=== PATIENT | female | born 2000 | race African-American/Black ===

== ENCOUNTER 2025-04-07 09:15 | Emergency (ER) | payer OTHER, SELFPAY ==
--- OUTSIDE RECORDS SUMMARY | 2024-06-24 10:15 | XMS_ITS ---
Author Organization [facility] vices Address [address] [place], [place] [phone] Care Team Providers Care Lead Data Architect Name Role Phone Ellie Brennan Primary Care Provider Sushila Robles Unavailable [phone] REASON FOR VISIT 6wk f/u cough Social History Sex Assigned At : Social History Observation Description Sex Assigned At Female Encounters Encounter Location Date Provider Diagnosis Main [address] [place] [phone] 06/24/2024 Sushila Robles Plan Of Treatment No Information Progress Notes * Shiloh ANDREaDOB: 1 (24 yo F)Acc No.[id number]:06/24/2024 Medical Note Patient: Macrina DERAS Provider: VINAY Carlton :2000 A ge:23 Y S ex:Female Date:06/24/2024 Address:[address] [place], [place] [phone] Pcp:Ellie Brennan Subjective: * Chief Complaints: * 1 . 6wk f/u cough. * Medical History: Objective: * Vitals: Assessment: Plan: * Treatment: * Billing Information: * Visit Code: * Procedure Codes: * Electronic signature of VINAY Perry on 04/07/2025 at 09:44 AM EDT Sign off status: Pending * Provider: VINAY Carlton Date: 1 08/25/2023 Generated for Marlene david/Arron/Farrah on: 1 09:44 AM EDT
--- OUTSIDE RECORDS SUMMARY | 2024-08-02 12:00 | XMS_ITS ---
Author Organization [facility] vices Address [address] [place], [place] [phone] Care Team Providers Care Elevator Erector Name Role Phone Ellie Brennan Primary Care Provider Sushila Robles Unavailable REASON FOR VISIT f/u stomach Social History Sex Assigned At : Social History Observation Description Sex Assigned At Female Encounters Encounter Location Date Provider Diagnosis Main [address], [place] [phone] 08/02/2024 Sushila Robles Plan Of Treatment No Information Progress Notes * Shiloh ANDREAzizaB: 1 (24 yo F)Acc No.[id number]:08/02/2024 Patient: Macrina DERAS Provider: VINAY Carlton :2000 A ge:23 Y S ex:Female Date:08/02/2024 Address:[address] [place], [place] [phone] Pcp:Ellie Brennan Subjective: * Chief Complaints: * 1 . F/u stomach. * Medical History: Objective: * Vitals: Assessment: Plan: * Treatment: * Billing Information: * Visit Code: * Procedure Codes: * Electronic signature of VINAY Perry on 04/07/2025 at 09:44 AM EDT Sign off status: Pending * Provider: VINAY Carlton Date: 0 08/02/2024 Generated for Marlene david/Arron/Farrah on: 1 09:44 AM EDT
[2025-04-07 09:21] VITALS: BP 127/79; PULSE 76; TEMP 36.9; O2SAT 99; BMI 25.1
--- NOTE | 2025-04-07 09:36 | ED_ITS ---
HPI - Skin/Abscess/Foreign Bdy General Chief complaint: Skin/Abscess/Foreign Body Stated complaint: EAR PAIN, BUMP UNDER ARM Time Seen by Provider: 04/07/25 09:22 Source: patient Mode of arrival: walk-in Limitations: no limitations History of Present Illness HPI narrative: cc - pain left armpit, skin changes including right external ear Pt noticed a small lump in her left armpit several months ago and over the last 4 weeks has experienced waxing and waning pain in the area. She told me that the area appears to have gotten larger. She wonders what might be the cause of that. She also has experienced crusting and occasional pimple-like growth on the right external ear and popped it and noticed some bleeding. Now it is crusted over. No systemic concerns such as fever or chills. No inner ear pain. No drainage from the left armpit lump. Related Data Previous Rx's ?Medication ?Instructions ?Recorded cephalexin 500 mg capsule 500 mg PO QID 7 days #28 cap s 04/07/25 sulfamethoxazole 800 1 tab PO BID 7 days #14 tabs 04/07/25 mg-trimethoprim 160 mg tablet (Bactrim DS) Allergies Allergy/AdvReac Type Severity Reaction Status Date / Time No Known Drug Allergies Allergy Verified 04/07/25 09:21 PFSH PFSH Social History Little interest or pleasure in doing things: not at all Feeling down, depressed, or hopeless: not at all Exam Narrative Exam Narrative: Nurses notes and vital signs reviewed and patient is not hypoxic. afebrile General: Well-appearing and in no apparent distress. Skin: Warm, dry, no pallor noted. Eye: Pupils are equal, round and EOMI. No scleral icterus. Ears, Nose, Mouth, and Throat: Both EACs have wax but the TMs are clear bilaterally. On the right, at the entrance to the external auditory canal, there is some crusting and scabbing along the skin of the external ear. No pustule or other acute infectious changes are noted. No bleeding or purulent discharge. No swelling or erythema to suggest cellulitis. Cardiovascular: Normal peripheral perfusion. Respiratory: No accessory muscle use or respiratory distress. Lungs are clear to auscultation, no wheezing, rales or rhonchi Musculoskeletal: Left axillary tenderness with a focal 1 cm diameter area of subcutaneous prominence -difficult to ascertain whether this is a swollen lymph node or perhaps an early developing abscess. Left upper extremity with normal ROM. No purulence or drainage from this area. No erythema or other skin change to suggest acute cellulitis. Neurological: A&O x4. No cranial nerve dysfunction observed. No truncal ataxia. Moves all extremities. Sensation intact. Psychiatric: Cooperative and interactive. Normal mood and affect. Constitutional Vital Signs, click to edit/add: Last Vital Signs Temp 98.5 F 04/07/25 09:21 Pulse 76 04/07/25 09:21 Resp 18 04/07/25 09:21 BP 127/79 04/07/25 09:21 Pulse Ox 99 04/07/25 09:21 O2 Del Method Room Air 04/07/25 09:21 Course Vital Signs Vital signs: Vital Signs Temperature 98.5 F 04/07/25 09:21 Pulse Rate 76 04/07/25 09:21 Respiratory Rate 18 04/07/25 09:21 Blood Pressure 127/79 04/07/25 09:21 Pulse Oximetry 99 04/07/25 09:21 Oxygen Delivery Method Room Air 04/07/25 09:21 Temperature 98.5 F 04/07/25 09:21 Pulse Rate 76 04/07/25 09:21 Respiratory Rate 18 04/07/25 09:21 Blood Pressure 127/79 04/07/25 09:21 Pulse Oximetry 99 04/07/25 09:21 Oxygen Delivery Method Room Air 04/07/25 09:21 MDM - Skin/Abscess/Foreign Bdy MDM Narrative Medical decision making narrative: We discussed my exam findings and diagnosis. I will start her on Bactrim and Keflex to treat any early axillary hidradenitis. She already sees a turnstile attendant and therefore I recommended that she talk to the turnstile attendant about the skin changes noted on her ear as she also has skin changes on her face that suggests she would benefit from treatment for acne. I do not see any ev idence of inner ear infection. She already has an appointment with ear nose and throat physician scheduled. Discharge Plan Discharge Chief Complaint: Skin/Abscess/Foreign Body Clinical Impression: Hidradenitis axillaris Patient Disposition: Home, Self-Care Time of Disposition Decision: 09:34 Prescriptions / Home Meds: New sulfamethoxazole-trimethoprim [Bactrim DS] 800-160 mg tablet 1 tab PO BID 7 Days Qty: 14 0RF cephalexin 500 mg capsule 500 mg PO QID 7 Days Qty: 28 0RF Print Language: Cape Verdean Instructions: Hidradenitis Suppurativa (ED)
--- OUTSIDE RECORDS SUMMARY | 2025-04-07 09:44 | XMS_ITS | Encounter Summary ---
Author Organization [facility] tem Address [id number] [address] [place] [address] Care Team Providers Care Mail Rider Name Role Phone Services, [facility] Primary Care Provider Encounter Details Date Type Department Care Team (Late st Contact Info) Description 05/19/2020 Abstract Jacinda Esvin [facility] - Medical Oncology [address] [place] [phone] Brendan Wagner MD [address] [place] [address] [address] [place] [address] Social History Tobacco Use Types Packs/Day Years Used Date Smoking Tobacco: Never Smokeless Tobacco: Never Childcare Answer Date Recorded Childcare Unknown 12/16/2018 Employment Answer Date Recorded Employment Unknown 12/16/2018 Comments Unknown Sex and Gender Information Value Date Recorded Sex Assigned at Not on file Legal Sex Female 11:57 AM EDT Gender Identity Not on file Sexual Orientation Not on file documented as of this encounter Plan of Treatment Upcoming Encounters Date Type Department Care Team (Late st Contact Info) Description 04/21/2025 8:00 AM EDT Telemedicine [facility], A Department of [address] [address] Aracelis Velasquez MD MPH [address] [place] [phone] 06/24/2025 10:00 AM EST Clinical Support [facility] [address] [place] [address] 06/24/2025 10:45 AM EST Office Visit [facility] [address] [place] [address] Chas Smith MD [address] [place] [address] documented as of this encounter Procedures Procedure Name Priority Date/Time Associated Diagnosis Comments MULTIPLE LABS Routine 05/08/2020 documented in this encounter Results * Multiple labs (05/08/2020) 05/08/2020 us Not In System Ref Prov PA IMAGING Final Res ult documented in this encounter Visit Diagnoses Not on filedocumented in this encounter Care Teams Mail Rider Relationship Specialty Start Date End Date [facility], [facility] [address] [place], [place] PCP - General Family Medicine 01/28/24 documented as of this encounter
--- OUTSIDE RECORDS SUMMARY | 2025-04-07 09:44 | XMS_ITS | Clinical Summary ---
Author Organization [employer] tem Address [id number] [address] [place] [address] Care Team Providers Care Telephone Information Clerk Name Role Phone Services, [facility] Primary Care Provider Allergies No known active allergies Medications DUPIXENT PEN 300 mg/2 mL pen injector SUBQ injection pen 2 Active ondansetron (ZOFRAN) 4 mg tabletIndication s:Migraine with aura and without status migrainosus, not intractable Take 1 tablet (4 mg total) by mouth daily as needed for nausea or vomiting. 30 tablet 5 4 Active Additional Information Patient not taking.Reported on 09/06/2024 SUMAtriptan (IMITREX) 50 mg tabletIndication s:Migraine with aura and without status migrainosus, not intractable Take 1 tablet (50 mg total) by mouth once as needed for migraine. May repeat in 2 hours if unresolved. Do not exceed 200 mg in 24 hours. 9 tablet 5 4 Active Additional Information Patient not taking.Reported on 09/06/2024 fluticasone propionate (FLONASE) 50 mcg/actuation nasal spray Administer 1 spray into each nostril in the morning. 16 g 4 Active acetaminophen (TYLENOL EXTRA STRENGTH) 500 mg tablet Take 2 tablets (1,000 mg total) by mouth every 6 (six) hours as needed for pain. 30 tablet 4 Active ibuprofen (MOTRIN) 800 mg tablet Take 1 tablet (800 mg total) by mouth 3 (three) times a day. 21 tablet 4 Active Additional Information Patient not taking.Reported on 09/06/2024 topiramate (TOPAMAX) 50 mg tabletIndication s:Migraine with aura and without status migrainosus, not intractable,Migr anuel without aura and without status migrainosus, not intractable Take 2 tablets (100 mg total) by mouth in the morning and 2 tablets (100 mg total) before bedtime. 120 tablet 5 4 Active naproxen (NAPROSYN) 500 mg tablet Take 1 tablet (500 mg total) by mouth in the morning and 1 tablet (500 mg total) in the evening. Take with meals. 30 tablet 5 Active Active Problems Problem Noted Date Diagnosed Date Nausea 09/11/2022 Migraine without aura and wi thout status migrainosus, not intractable 09/11/2022 Morbid obesity due to excess calories 06/12/2022 Motion sickness 06/12/2022 Benign intracranial hypertension 01/10/2022 Chronic migraine with aura 10/02/2021 Morbid obesity 10/02/2021 Unresponsive episode 10/02/2021 Witnessed seizure-like activity 10/02/2021 Encounters Date Type Department Care Team Description 02/26/2025 10:06 PM EDT - 02/26/2025 11:[address] [facility] - Emergency [address] [place] [phone] Melanie Lares DO Paresthesia (Primary Dx); Yeast infection Discharge Disposition: Home 02/26/2025 Travel 01/30/2025 6:55 PM EDT - 01/30/2025 7:[address] [facility] - Emergency [address] [place] [address] Fabián Kingston MD Puncture wound (Primary Dx) Discharge Disposition: Home 01/30/2025 Travel 01/12/2025 10:16 AM EDT - 01/12/2025 10:[address] [facility] - Emergency [address] [facility] [place] [address] Acute otitis media, unspecified otitis media type (Primary Dx) Discharge Disposition: Home 01/12/2025 Travel from Last 3 Months Immunizations Immunization Administration Dates Next Due Tdap 01/30/2025 Family History Medical History Relation Name Comments Cancer Maternal Grandmother Migraines Maternal Grandmother Migraines Mother Cancer Paternal Grandmother Relation Name Status Comments Father Alive Maternal Grandmother Mother Alive Paternal Grandmother Social History Tobacco Use Types Packs/Day Years Used Date Smoking Tobacco: Never Smokeless Tobacco: Never Tobacco Cessation:Counseling Given: Not Answered Alcohol Use Standard Drinks/Week Comments Never 0 (1 standard drink = 0.6 oz pur e alcohol) PHQ-2 Answer Date Recorded Total Score 0 09/11/2022 Childcare Answer Date Recorded Childcare Unknown 12/16/2018 Employment Answer Date Recorded Employment Unknown 12/16/2018 Hunger Screening Answer Date Recorded Within the past 12 months we worried whether our food would run out before we got money to buy more. Never True 02/26/2025 Within the past 12 months th e food we bought just didn't last and we didn't have money to get more. Never True 02/26/2025 Purpose - Life Answer Date Recorded Purpose and direction in life Unknown Comments No Sex and Gender Information Value Date Recorded Sex Assigned at Not on file Legal Sex Female 11:57 AM EDT Gender Identity Not on file Sexual Orientation Not on file Last Filed Vital Signs Vital Sign Reading Time Taken Comments Blood Pressure 126/72 02/26/2025 11:00 PM EDT Pulse 99 02/26/2025 10:10 PM EDT Temperature 37 C (98.6 F) 02/26/2025 10:10 PM EDT Respiratory Rate 21 02/26/2025 10:10 PM EDT Oxygen Saturation 100% 02/26/2025 10:45 PM EDT Inhaled Oxygen Concentration - - Weight 72.6 kg (160 lb) 02/26/2025 10:10 PM EDT Height 170.2 cm (5' 7 ) 02/26/2025 10:10 PM EDT Body Mass Index 25.06 02/26/2025 10:10 PM EDT Plan of Treatment Upcoming Encounters Date Type Department Care Team (Late st Contact Info) Description 04/21/2025 8:00 AM EDT Telemedicine [facility], [facility] Department of [address] [address] Aracelis Velasquez MD MPH [address] [facility] [address] [place] [phone] 06/24/2025 10:00 AM EST Clinical Support [facility] [address] [place] [address] 06/24/2025 10:45 AM EST Office Visit [facility] [address] [facility] [place] [address] Chas Smith MD [address] [facility] [address] [place] [address] Health Maintenance Due Date Last Done Comments Adult BMI Follow Up Plan 2018 Pap Smear 2021 Depression Screening 09/12/2023 09/11/2022 Influenza Vaccine 03/07/2025 05/06/2008 Adult BMI Screening 02/26/2026 02/26/2025 Tobacco Screening 02/26/2026 02/26/2025 DTaP,Tdap and Td Vaccines (8 - Td or Tdap) 01/30/2035 01/30/2025, 11/20/2012, 12/06/2005, Additional history exists Medical Devices Not on file Insurance [place] [employer] [employer] Care Teams Telephone Information Clerk Relationship Specialty Start Date End Date Services, [facility] [address] [place], [place] PCP - General Family Medicine 01/28/24
--- OUTSIDE RECORDS SUMMARY | 2025-04-07 09:44 | XMS_ITS | Encounter Summary ---
Author Organization [employer] [facility] tem Address [id number] [address] [place] [address] Care Team Providers Care Legal Instructor Name Role Phone [facility] Primary Care Provider Reason for Visit * Reason Onset Date Comments Lumbar Puncture 01/14/2022 Encounter Details Date Type Department Care Team (Late st Contact Info) Description 01/14/2022 Telephone [facility] [address] [place] [address] Anette Roland Lumbar Puncture Social History Tobacco Use Types Packs/Day Years Used Date Smoking Tobacco: Never Smokeless Tobacco: Never Alcohol Use Standard Drinks/Week Comments Never 0 (1 standard drink = 0.6 oz pur e alcohol) Childcare Answer Date Recorded Childcare Unknown 12/16/2018 Employment Answer Date Recorded Employment Unknown 12/16/2018 Purpose - Life Answer Date Recorded Purpose and direction in life Unknown Comments Unknown Sex and Gender Information Value Date Recorded Sex Assigned at Not on file Legal Sex Female 11:57 AM EDT Gender Identity Not on file Sexual Orientation Not on file documented as of this encounter Miscellaneous Notes * Telephone Encounter - Anette Pedraza - 01/14/2022 10:14 AM EDT Adele from [facility] in [place] contacted our office stating that they willneed to send the order for a Lumbar Puncture to [place] due to the specified positioning placed on the order. Adele states that left lateral positioning was requested, and they are unable to perform this using their equipment in [place]. Adele states that she will send the order to [place] in order to complete positioning on order. Please advise * Telephone Encounter - Kishore Monzon MD - 01/14/2022 10:14 AM EDT That sounds good. Can we please ask the patient if that would work for her? Thanks documented in this encounter Plan of Treatment Upcoming Encounters Date Type Department Care Team (Late st Contact Info) Description 04/21/2025 8:00 AM EDT [facility] Department of [facility] [address] [place] [address] [address] [place] [phone] Aracelis Velasquez MD [address] [phone] 06/24/2025 10:00 AM EST Clinical Support [facility] [address] [facility] [address] [place] [phone] 06/24/2025 10:45 AM EST Office Visit [facility] [address] [facility] [address] [place] [phone] Chas Smith MD [address] [place] [address] [address] [place] [address] documented as of this encounter Visit Diagnoses Not on filedocumented in this encounter Additional Health Concerns Assessment Noted Time A Body Mass Index follow-up plan has been documented for the patient 10/02/2021 11:36 PM EDT documented as of this encounter Care Teams Legal Instructor Relationship Specialty Start Date End Date Services, [facility] [address] [place] PCP - General Family Medicine 01/28/24 documented as of this encounter
--- OUTSIDE RECORDS SUMMARY | 2025-04-07 09:44 | XMS_ITS | Encounter Summary ---
Author Organization [facility] tem Address [id number] [address] [place] [address] Care Team Providers Care Repairer Typewriter Name Role Phone Services, [facility] Primary Care Provider Encounter Details Date Type Department Care Team (Late st Contact Info) Description 10/18/2024 Telephone [facility], A Department of [facility] [address] [place] [phone] Amy Davies CMA Social History Tobacco Use Types Packs/Day Years [...] got money to buy more. Never True 05/20/2024 Within the past 12 months th e food we bought just didn't last and we didn't have money to get more. Never True 05/20/2024 Purpose - Life Answer Date Recorded Purpose and direction in life Unknown Comments No Sex and Gender Information Value Date Recorded Sex Assigned at Not on file Legal Sex Female 11:57 AM EDT Gender Identity Not on file Sexual Orientation Not on file documented as of this encounter Miscellaneous Notes * Telephone Encounter - Amy Davies CMA - 10/18/2024 9:17 AM EDT Contacted [facility] [phone] to get lab results faxed to our office for Macrina. I was informed that they did not have to results there. I was provided a number to [employer] [phone] and spoke with Kenzie. She stated that she would fax over the patient's lab orders. Kenzie was provided the fax number to the office. Providing an update. * Telephone Encounter - Aracelis Velasquez MD MPH - 10/18/2024 9:17 AM EDT Thank you for the updates. Once we get the fax, please feel free to put it on my desk. I will call the patient after I review the results. Aracelis Velasquez MD, MPH documented in this encounter Plan of Treatment Upcoming Encounters Date Type Department Care Team (Late st Contact Info) Description 04/21/2025 8:00 AM EDT Telemedicine [facility] Department of [address] [phone] Aracelis Velasquez MD MPH [address] [place] [phone] 06/24/2025 10:00 AM EST Clinical Support [facility] [place] [address] 06/24/2025 10:45 AM EST Office Visit [facility] [address] [place] [address] Chas Smith MD [address] [place] [address] [address] [place] [address] documented as of this encounter Visit Diagnoses Not on filedocumented in this encounter Additional Health Concerns Assessment Noted Time PHQ-9 Depression Total Score: 0 09/12/19 11:16 AM EST A Body Mass Index follow-up plan has been documented for the patient 03/14/2023 11:34 AM EDT documented as of this encounter Care Teams Repairer Typewriter Relationship Specialty Start Date End Date Services, [facility] [address] [place], [place] PCP - General Family Medicine 01/28/24 documented as of this encounter
--- OUTSIDE RECORDS SUMMARY | 2025-04-07 09:44 | XMS_ITS | Encounter Summary ---
Author Organization [facility] tem Address [id number] [address] [place] [address] Care Team Providers Care Meter Setter Name Role Phone Services, Pending Sale To [facility] Primary Care Provider Encounter Details Date Type Department Care Team (Late st Contact Info) Description 10/18/2024 Orders Only [facility], [facility] Department of [address] [phone] Ref Prov, [place] [address] Social History Tobacco Use Types Packs/Day Years [...] EDT Telemedicine [facility], [facility] Department of [facility] [address] [place] [address] [address] [place] [phone] Aracelis Velasquez MD MPH [address] [facility] [address] [place] [phone] 06/24/2025 10:00 AM EST Clinical Support [facility] [address] [place] [address] [address] [place] [phone] 06/24/2025 10:45 AM EST Office Visit [facility] [address] [place] [address] [address] [place] [phone] [place] [address] [place] [address] [address] [place] [address] documented as of this encounter Procedures Procedure Name Priority Date/Time Associated Diagnosis Comments EXTERNAL LAB ORDERS / RESULTS Routine 10/18/2024 12:18 PM EDT documented in this encounter Results * External Lab Orders / Results (10/18/2024 12:18 PM EDT) us Not In System Ref Prov LAB ORDERABLES Final Res ult MANUALLY TRANSCRIBED RESULTS documented in this encounter Visit Diagnoses Not on filedocumented in this encounter Additional Health Concerns Assessment Noted Time PHQ-9 Depression Total Score: 0 09/12/19 23 11:16 AM EST A Body Mass Index follow-up plan has been documented for the patient 03/14/2023 11:34 AM EDT documented as of this encounter Care Teams Meter Setter Relationship Specialty Start Date End Date Services, Pending Sale To [facility] [address] [place] PCP - General Family Medicine 01/28/24 documented as of this encounter
--- OUTSIDE RECORDS SUMMARY | 2025-04-07 09:44 | XMS_ITS | Encounter Summary ---
Author Organization [facility] [employer] [facility] tem Address [facility] [id number] [address] [place] [address] Care Team Providers Care National Sales Representative Name Role Phone Services, [facility] Primary Care Provider Reason for Visit * Reason Onset Date Comments Medication Update 06/03/2022 Encounter Details Date Type Department Care Team (Late st Contact Info) Description 06/03/2022 Telephone [facility] [address] [place] [address] Theresa Diaz Medication Update Social History Tobacco Use Types Packs/Day Years [...] on file Sexual Orientation Not on file COVID-19 Exposure Response Date Recorded In the last month, have you been in contact with someone who was confirmed or suspected to have Coronavirus / COVID-19? No / Unsure 06/04/2022 12:51 PM EST documented as of this encounter Miscellaneous Notes * Telephone Encounter - Theresa Diaz - 06/03/2022 1:11 PM EST Patient stated she made appt because she wants to go over Lumbar Puncture results. Also, patient stated she has been taking medication nortriptyline (PAMELOR) 10 mg capsule and it has caused her to gain weight. Dr. Monzon was going to look into a medication that is more weight-controlling. Patient is scheduled 08/06/22. * Telephone Encounter - Kishore Monzon MD - 06/03/2022 1:11 PM EST Would wait to talk with her. Can we set her up as a Telemedicine clinic visit for the 06/11/22? * Telephone Encounter - Audrey Alarcon CMA - 06/03/2022 1:11 PM EST Called patient and rescheduled for Telemed on 06/11/22 to discuss medication and results documented in this encounter Plan of Treatment Upcoming Encounters Date Type Department Care Team (Late st Contact Info) Description 04/21/2025 8:00 AM EDT Telemedicine [facility], A Department of [address] [phone] Aracelis Velasquez MD MPH [address] [place] [phone] 06/24/2025 10:00 AM EST Clinical Support [facility] [address] [facility] [address] [place] [address] 06/24/2025 10:45 AM EST Office Visit [facility] [address] [place] [address] [place] [address] [place] [address] [address] [place] [address] documented as of this encounter Visit Diagnoses Not on filedocumented in this encounter Additional Health Concerns Assessment Noted Time A Body Mass Index follow-up plan has been documented for the patient 10/02/2021 11:36 PM EDT documented as of this encounter Care Teams National Sales Representative Relationship Specialty Start Date End Date Services, [facility] [address], [place] PCP - General Family Medicine 01/28/24 documented as of this encounter
--- OUTSIDE RECORDS SUMMARY | 2025-04-07 09:44 | XMS_ITS | Encounter Summary ---
Author Organization [facility] tem Address [id number] [address] [place] [address] Care Team Providers Care Human Resources Specialist Name Role Phone Services, [facility] Primary Care Provider Reason for Visit * Reason Onset Date Comments referral 04/24/2021 Encounter Details Date Type Department Care Team (Late st Contact Info) Description 04/24/2021 Telephone [facility] [address] [place] [address] Charlotte Medina referral Social History Tobacco Use Types Packs/Day Years [...] have Coronavirus / COVID-19? No / Unsure 03/26/2021 8:58 AM EDT documented as of this encounter Miscellaneous Notes * Telephone Encounter - Charlotte Medina - 04/24/2021 10:24 AM EDT Neurology Referral Dx: syncopal episodes, migraines Referred By: CADY Tolbert Referred To: Dr. Monzon in [place] * Telephone Encounter - Linda Broderick - 04/24/2021 10:24 AM EDT 1st attempt- left voicemail * Telephone Encounter - Leticia Ahuja - 04/24/2021 10:24 AM EDT 2nd attempt: Left message for patient documented in this encounter Plan of Treatment Upcoming Encounters Date Type Department Care Team (Late st Contact Info) Description 04/21/2025 8:00 AM EDT Telemedicine [facility] A Department of [address] [place] [address] Aracelis Velasquez MD MPH [address] [place] [phone] 06/24/2025 10:00 AM EST Clinical Support [facility] [address] [place] [address] [address] [place] [phone] 06/24/2025 10:45 AM EST Office Visit [facility] [address] [facility] [address] [place] [phone] Chas Smith MD [address] [place] [address] [address] [place] [address] documented as of this encounter Visit Diagnoses Not on filedocumented in this encounter Care Teams Human Resources Specialist Relationship Specialty Start Date End Date [facility], [facility] [address] PCP - General Family Medicine 01/28/24 documented as of this encounter
--- OUTSIDE RECORDS SUMMARY | 2025-04-07 09:44 | XMS_ITS | Encounter Summary ---
Author Organization [facility] [employer] [facility] tem Address [facility] [id number] [address] [place] [address] Care Team Providers Care Injection Moulding Machine Operator Name Role Phone Services, [facility] Primary Care Provider Encounter Details Date Type Department Care Team (Late st Contact Info) Description 01/14/2022 Telephone [facility] Imaging [address] [place] [phone] Adele Lozano RN Social History Tobacco Use Types Packs/Day Years [...] Info) Description 04/21/2025 8:00 AM EDT Telemedicine [facility] Rheumatology, A Department of [address] [phone] Aracelis Velasquez MD MPH [address] [place] [phone] 06/24/2025 10:00 AM EST Clinical Support [facility] [address] [facility] [address] [place] [phone] 06/24/2025 10:45 AM EST Office Visit [facility] [address] [facility] [address] [place] [phone] Chas Smith MD [address] [place] [address] [address] [place] [address] documented as of this encounter Visit Diagnoses Not on filedocumented in this encounter Additional Health Concerns Assessment Noted Time A Body Mass Index follow-up plan has been documented for the patient 10/02/2021 11:36 PM EDT documented as of this encounter Care Teams Injection Moulding Machine Operator Relationship Specialty Start Date End Date Services, [facility] [address] [place] [address] PCP - General Family Medicine 01/28/24 documented as of this encounter
--- OUTSIDE RECORDS SUMMARY | 2025-04-07 09:44 | XMS_ITS | Clinical Summary ---
Author Organization [facility] Healthcare Address [address] [place] [address] Care Team Providers Care Statistical Geneticist Name Role Phone Unavailable Primary Care Provider Unavailabl e Social History Tobacco Use Types Packs/Day Years Used Date Smoking Tobacco: Never Assessed Comments Unknown Sex and Gender Information Value Date Recorded Sex Assigned at Not on file Legal Sex Female 8:26 PM EDT Gender Identity Not on file Sexual Orientation Not on file Plan of Treatment Not on file
== END 2025-04-07 09:46 | disposition home or self-care (01) ==
PROVIDERS: Emergency Provider Emergency Medicine
DX: L73.2 Hidradenitis suppurativa (principal)
CPT/HCPCS: 99283